=== PATIENT | male | born 1945 | race Caucasian/White ===

== ENCOUNTER 2017-04-10 16:00 | Emergency (ER) | payer OTHER ==
[2017-04-10] MEDS ORDERED: Tylenol #3 Tablet PO ONE (16:37)
[2017-04-10] MEDS ORDERED: Tylenol #3 Tablet ONE (16:39)
--- NOTE | 2017-04-10 16:40 | ERPHSYRPT ---
- History of Present Illness Time Seen by Provider: 04/10/17 16:30 Source: patient Exam Limitations: clinical condition Patient Subjective Stated Complaint: PT STATES HE FELL ON PAVEMENT AROUND 10AM TODAY (04/10/2017). TRIP OVER A LEDGE AND FELL MAINLY ON HIS LEFT SIDE. HIT HEAD /EYE ON PAVEMENT AND WHEN FALLING PLACED LEFT HAND OVER CHEST SINCE THE FALL HE HAS HAD PAIN ON THE LEFT SIDE OF CHEST WHERE HIS HAND WAS. SKINNED LEFT KNEE AND LEFT HAND. Triage Nursing Assessment: PT IS ALERT X 3. RESPIRATIONS EVEN AND UNLABORED. SKIN IS PIMNK WARM AND DRY WITH ABRASIONS TO THE LEFT SIDE OF FOREHEAD, LEFT KNEE AND LEFT HAND. LARGE PURPLE BRUISE AND SWELLING NOTED TO THE LEFT EYE. PT DENIES ANY VISION CHANGES. PT DENIES BLACKING OUT. Physician History: PATIENT WITH HISTORY OF ARRHYTHMIA, HYPERTENSION, PACEMAKER INSERTION, TRIPPED WALKING ONTO SIDEWALK STRUCK FOREHEAD, DENIES LOSS OF CONSCIOUSNESS, NECK PAIN OR HEADACHE. DENIES BLURRED VISION, NUMBNESS, TINGLING OR WEAKNESS IN EXTREMITIES. Occurred: just prior to arrival Reason for Fall: tripped Injuries/Pain Location: head, face, chest Loss of Consciousness: no loss of consciousness Quality: aching Severity of Pain-Max: mild Severity of Pain-Current: mild Modifying Factors: Improves With: nothing Associated Symptoms (Fall): denies symptoms Allergies/Adverse Reactions: No Known Drug Allergies Allergy (Unverified 04/10/17 16:23) Home Medications: Amlodipine Besylate 5 mg [Norvasc 5 mg] 5 mg PO DAILY 04/10/17 [History] Azithromycin 250 mg [Zithromax 250 MG TABLET] 250 mg PO ZPACK 04/10/17 [ History] Benzonatate 100 mg PO TID 04/10/17 [History] Citalopram Hydrobromide 20 mg* [ceLEXa 20 MG] 20 mg PO DAILY 04/10/17 [ History] Fluticasone Propionate [Flovent Diskus] 50 mcg IH DAILY 04/10/17 [History] Furosemide 20 mg [Lasix 20 mg] 20 mg PO DAILY 04/10/17 [History] Guaifenesin/D-Methorphan Hb [Robitussin Cough-Pedro Syrup] 10 ml PO HS 04/10/17 [ History] Ipratropium [place] [Atrovent Hfa] 12.9 gm IH UD PRN 04/10/17 [History] Levothyroxine Sodium 100 Mcg [Synthroid 100 Mcg] 125 mcg PO DAILY 04/10/17 [History] Metoprolol Tartrate [Lopressor] 200 mg PO DAILY 04/10/17 [History] Omeprazole 40 mg PO DAILY 04/10/17 [History] Probenecid 500 mg PO DAILY 04/10/17 [History] Pseudoephedrine HCl [Sudafed] 30 mg PO BID 04/10/17 [History] Rosuvastatin Calcium [Crestor] 5 mg PO DAILY 04/10/17 [History] Sacubitril/Valsartan [Entresto 49 mg-51 mg Tablet] 1 each PO BID 04/10/17 [ History] Warfarin Sodium 2.5 mg [Coumadin 2.5 MG] 2.5 mg PO DAILY 04/10/17 [History ] Hx Tetanus, Diphtheria Vaccination/Date Given: No Hx Influenza Vaccination/Date Given: Yes Hx Pneumococcal Vaccination/Date Given: No Immunizations Up to Date: Yes - Review of Systems Constitutional: No Fever, No Chills Eyes: No Symptoms Ears, Nose, & Throat: No Symptoms Respiratory: No Cough, No Dyspnea Cardiac: Chest Pain, No Edema, No Syncope Abdominal/Gastrointestinal: No Symptoms, No Abdominal Pain, No Nausea, No Vomiting, No Diarrhea Genitourinary Symptoms: No Symptoms, No Dysuria Musculoskeletal: No Symptoms, No Back Pain, No Neck Pain Skin: No Rash Neurological: No Dizziness, No Focal Weakness, No Sensory Changes Psychological: No Symptoms Endocrine: No Symptoms All Other Systems: Reviewed and Negative - Past Medical History Pertinent Past Medical History: Yes Neurological History: No Pertinent History Cardiac History: Arrhythmia, Congestive Heart Failure, High Cholesterol, Hypertension Respiratory History: COPD, Pneumonia, Sleep Apnea Endocrine Medical History: Hypothyroidism Musculoskeletal History: Arthritis GI Medical History: GERD History: No Pertinent History Psycho-Social History: Anxiety, Depression Male Reproductive Disorders: Prostate Cancer, Prostate Problems Other Medical History: GOUT - Past Surgical History Past Surgical History: Yes Neuro Surgical History: No Pertinent History Cardiac: No Pertinent History Respiratory: No Pertinent History Gastrointestinal: No Pertinent History Genitourinary: No Pertinent History Musculoskeletal: Joint Replacement, Orthopedic Surgery Male Surgical History: No Pertinent History Other Surgical History: KNEE REPLACEMENT, BACK SURGERY, DEFIB PLACED 2012 - Social History Smoking Status: Former smoker Exposure to second hand smoke: Yes Drug Use: none Patient Lives Alone: No - Nursing Vital Signs Nursing Vital Signs: Initial Vital Signs Temperature 97.7 F Temperature Source Oral Pulse Rate 60 Respiratory Rate 20 Blood Pressure [Right Arm] 133/79 Pain Intensity 0 - Matinicus Coma Score Best Eye Response (Matinicus): (4) open spontaneously Best Verbal Response (Jodi): (5) oriented Best Motor Response ([place]): (6) obeys commands Jodi Total: 15 - Physical Exam General Appearance: no apparent distress, alert Head Injury: swelling, tenderness (LEFT EYEBROW,SLIGHT ECCHYMOSIS) Eye Exam: PERRL/EOMI ENT Exam: airway nml, evidence of ENT injury Neck Exam: normal inspection, No tenderness Respiratory/Chest Exam: chest tenderness (LEFT LATERAL RIBS 8TH TO 10TH, NO CREPITUS OR ECCHYMOSIS), normal breath sounds, No respiratory distress Cardiovascular Exam: normal heart sounds, regular rate/rhythm Gastrointestinal Exam: soft, normal bowel sounds (NONTENDERNESS), No tenderness , No distention, No guarding, No ecchymosis Back Exam: normal inspection, No vertebral tenderness Extremity Exam: normal inspection, normal range of motion, pelvis stable, No deformities Peripheral Pulses: carotid (R): 2+, carotid (L): 2+, femoral (R): 2+, femoral (L ): 2+, dorsalis-pedis (R): 2+, dorsalis-pedis (L): 2+ Neurologic Exam: alert, oriented x 3, cooperative, sensation nml, No motor deficits Skin Exam: normal color, warm, dry SpO2 Interpretation: normal SpO2: 97 Oxygen Delivery: Nasal Cannula - Radiology Exams Chest X-ray Interpretation: Discussed w/ radiologist, No Pneumothorax Left Ribs X-ray Interpretation: Discussed w/ radiologist, No Fracture - CT Exams Head CT Interpretation: Discussed w/radiologist (LEFT FRONT SCLAP HEMATOMA, NO FRACTURE OR INTRACRANIAL ABNORMALITIES) Maxillofacial Bones CT Interpretation: Discussed w/radiologist (NEGATIVE FOR ACUTE FRACTURE, NEAR COMPLETE OPACIFICATION OF BOTH SPHENOID SINUSES ) Ordered Tests: Active Orders 24 hr Category Date Time Status CHEST 2 VIEWS (PA AND LAT) Stat Exams 04/10/17 16:39 Completed FACIAL BONES WO CONTRAST [CT] Stat Exams 04/10/17 16:37 Completed HEAD WITHOUT CONTRAST [CT] Stat Exams 04/10/17 16:37 Completed RIBS UNILATERAL Stat Exams 04/10/17 16:39 Completed Medication Summary Discontinued Medications Generic Name Dose Route Start Last Admin Trade Name Freq PRN Reason Stop Dose Admin Acetaminophen/Codeine Phosphate 1 tab 04/10/17 16:37 04/10/17 16:39 Tylenol #3 Tablet PO 04/10/17 16:38 1 tab STAT ONE Administration Acetaminophen/Codeine Phosphate Confirm 04/10/17 16:39 Tylenol #3 Tablet Administered 04/10/17 16:40 Dose 1 tab .ROUTE .[facility] ONE - Departure Time of Disposition: 18:30 Departure Disposition: Home Clinical Impression: FOREHEAD CONTUSION, SPHENOID SINUSITIS, LEFT CHEST WALL CONTUSION Condition: Stable Critical Care Time: No Additional Instructions: FOLLOW HEAD INJURY INSTRUCTIONS. APPLY ICE OVER FACIAL SWELLING EVERY 4 HOURS, 30 MINUTES FOR 48 HOURS. TYLENOL #3 EVERY 4 HOURS FOR PAIN NEEDED. CONSULT YOUR FAMILY PHYSICIAN FOR EVALUATION IN 1 WEEK. Prescriptions: Codeine Phosphate/APAP #3 [Tylenol #3 Tablet] 1 tab PO Q4HPRN PRN #15 tablet PRN Reason: Pain
--- NOTE | 2017-04-10 17:16 | XRAY ---
Indication: Left supraorbital head injury following fall. Multiple contiguous axial images obtained through the facial bones. Sagittal and coronal reformatted images obtained. Comparison: None Patient is edentulous. Moderate-sized left frontal scalp hematoma. No acute fracture, suspicious bony lesions, or radiopaque foreign body. Orbits including roof, oviedo, and floors intact. Near complete opacification of both sphenoid sinuses with minimal mucosal thickening of the remaining paranasal sinuses bilaterally. Remaining visualized noncontrasted soft tissues are unremarkable. There is well-circumscribed ossification involving the tip of the odontoid process either developmental versus degenerative versus old injury. CT head reported separately. Impression: Left frontal scalp hematoma. CT facial bones negative for acute fracture. Incidental paranasal sinus disease. CTDI 59.47
--- NOTE | 2017-04-10 17:16 | XRAY ---
Indication: Left supraorbital head injury following fall. Multiple contiguous axial images obtained through the head without contrast. Comparison: None Moderate sized left frontal scalp hematoma. Ventriculosulcal pattern appears symmetric. No acute intracranial hemorrhage, abnormal extra-axial fluid collection, or mass effect. Lopez-white matter differentiation preserved. Fourth ventricle is midline without hydrocephalus. Bony calvarium intact. There is near complete opacification of both sphenoid sinuses with minimal mucosal thickening of the remaining visualized paranasal sinuses. Mastoid air cells are clear. Impression: Left frontal scalp hematoma. No underlying fracture or acute intracranial abnormalities. Incidental paranasal sinus disease. CTDI 34.33
--- NOTE | 2017-04-10 17:20 | XRAY ---
Indication: Pain following fall. Comparison: None PA/lateral chest obtained. Lateral view limited by respiration artifact. There is left base atelectasis/scarring and right hemidiaphragm elevation. Lungs otherwise clear. Heart is not enlarged with a left sided AICD. Vascularity normal. Bony thorax intact with mild degenerative changes. Impression: Nonacute chest with chronic features.
--- NOTE | 2017-04-10 17:20 | XRAY ---
Indication: Pain following fall. Comparison: None 2 views of the left ribs demonstrates left-sided pacemaker partially obscuring underlying ribs. Mild multilevel spinal degenerative changes, mild AC degenerative arthropathy, lower lumbar fusion surgery, and left lung base atelectasis/scarring. No other bony, articular, or soft tissue abnormalities.
[2017-04-10 18:14] VITALS: BP 133/79; PULSE 60; O2SAT 97
== END 2017-04-10 18:38 | disposition home or self-care (01) ==
LOC: ED 16:00
DX: S00.83XA Contusion of other part of head, initial encounter (principal); J32.3 Chronic sphenoidal sinusitis; S20.212A Contusion of left front wall of thorax, initial encounter; W01.0XXA Fall on same level from slipping, tripping and stumbling without subsequent striking against object, initial encounter; S80.212A Abrasion, left knee, initial encounter; S60.512A Abrasion of left hand, initial encounter; Z79.899 Other long term (current) drug therapy; Z79.01 Long term (current) use of anticoagulants
CPT/HCPCS: 70450; 70486; 71020; 71100; 99284; A9270-GY